=== PATIENT | female | born 1945 | race Caucasian/White ===

== ENCOUNTER 2016-04-22 03:29 | Observation (INO) | payer OTHER ==
[2016-04-22] VITALS (9 sets, daily range): BP systolic 130–168; BP diastolic 63–95; PULSE 90–114; RESP 16–18; TEMP 97.8–98.9; O2SAT 96–100
[~2016-04-22] VITALS: Ht 167.6 cm; Wt 90.0 kg
[~2016-04-22 03:29] MED LIST: ASPI325T PO; ERYT400T4 PO; PENI500T PO
[2016-04-22] MEDS ORDERED: METO50TA PO (03:41)
[2016-04-22] MEDS ORDERED: ANAS1TAB PO (03:41)
[2016-04-22] MEDS ORDERED: HYDR12.57 PO (03:41)
[2016-04-22] MEDS ORDERED: SIMV40TA PO (03:41)
[2016-04-22] MEDS ORDERED: LISI-519 PO (03:41)
[2016-04-22] MEDS ORDERED: VITA500030 PO (03:41)
[2016-04-22] MEDS ORDERED: ASPI-110 PO (03:41)
[2016-04-22] MEDS ORDERED: GLIP5TAB8 PO (03:41)
[2016-04-22] MEDS ORDERED: SODIUM CHLORIDE 0.9% FLUSH 5 ML FLUSH IVF PRN ×2 (04:00→06:00)
--- NOTE | 2016-04-22 04:35 | RADRPT ---
EXAM DATE/TIME: 04/22/2016 04:03 [facility] COMPARISON: No previous studies available for comparison. INDICATIONS : Weakness with difficulty speech. RADIATION DOSE: 56.37 CTDIvol (mGy) MEDICAL HISTORY : Diabetes mellitus type 2. SURGICAL HISTORY : None. ENCOUNTER: Initial ACUITY: 1 day PAIN SCALE: 0/10 LOCATION: cranial TECHNIQUE: Multiple contiguous axial images were obtained of the head. Using automated exposure control and adj ustment of the mA and/or kV according to patient size, radiation dose was kept as low as reasonably a chievable to obtain optimal diagnostic quality images. FINDINGS: CEREBRUM: The ventricles are normal for age. No evidence of midline shift, mass lesion, hemorrhage or acute in farction. No extra-axial fluid collections are seen. POSTERIOR FOSSA: The cerebellum and brainstem are intact. The 4th ventricle is midline. The cerebellopontine angle i s unremarkable. EXTRACRANIAL: The visualized portion of the orbits is intact. SKULL: The calvaria is intact. No evidence of skull fracture. CONCLUSION: Normal examination for a patient of this age. Georges Copeland MD on April 22, 2016 at 4:33 Board Certified Radiologist. This report was verified electronically.
--- NOTE | 2016-04-22 04:36 | RADRPT ---
EXAM DATE/TIME: 04/22/2016 04:09 [facility] COMPARISON: No previous studies available for comparison. INDICATIONS : Weakness. Congestion. MEDICAL HISTORY : None. SURGICAL HISTORY : None. ENCOUNTER: Initial ACUITY: 1 day PAIN SCORE: 7/10 LOCATION: Bilateral chest FINDINGS: A single view of the chest demonstrates the lungs to be symmetrically aerated without evidence of mas s, infiltrate or effusion. The cardiomediastinal contours are unremarkable. Osseous structures are intact. CONCLUSION: Normal examination for a patient of this age. Georges Copeland MD on April 22, 2016 at 4:34 Board Certified Radiologist. This report was verified electronically.
[2016-04-22 04:44] LABS: AUTOMATED NEUTROPHIL # 8.1 TH/MM3 (1.8-7.7); BASOPHIL % 0.4 % (0.0-2.0); EOSINOPHIL % 0.1 % (0.0-4.0); HEMATOCRIT 33.9 % (35.0-46.0); HEMO FLAGS DIFF FINAL; LYMPH % 7.1 % (9.0-44.0); LYMPHOCYTE # 0.6 TH/MM3 (1.0-4.8); MEAN CELL VOLUME 83.2 FL (80.0-100.0); MEAN CORPUSCULAR HEMOGLOBIN 28.8 PG (27.0-34.0); MEAN CORPUSCULAR HGB CONC 34.6 % (32.0-36.0); MONO % 3.6 % (0.0-8.0); NEUT % 88.8 % (16.0-70.0); PLATELET COUNT 243 TH/MM3 (150-450); RED BLOOD COUNT 4.08 MIL/MM3 (4.00-5.30); RED CELL DISTRIBUTION WIDTH 14.5 % (11.6-17.2); WHITE BLOOD COUNT 9.1 TH/MM3 (4.0-11.0)
[2016-04-22 04:54] LABS: APTT (PATIENT) 23.6 SEC (24.3-30.1); INTERNATIONAL NORMALIZED RATIO 0.9 RATIO
[2016-04-22 05:09] LABS: ANION GAP 11 MEQ/L (5-15); AST (GOT) 22 U/L (15-37); BICARBONATE 26.1 MEQ/L (21.0-32.0); BLOOD UREA NITROGEN 26 MG/DL (7-18); CHLORIDE 106 MEQ/L (98-107); GLOMERULAR FILTRATION RATE 37 ML/MIN (>89); POTASSIUM 4.8 MEQ/L (3.5-5.1); SODIUM (NA) 143 MEQ/L (136-145)
[2016-04-22 05:14] LABS: ALKALINE PHOSPHATASE 48 U/L (45-117); ALT (GPT) 20 U/L (10-53); CREATINE KINASE 190 U/L (26-192); TOTAL BILIRUBIN ADULT 0.2 MG/DL (0.2-1.0)
--- NOTE | 2016-04-22 05:53 | PD ---
HPI Chief Complaint: Diabetic Time Seen by Provider: 03:48 Travel History International Travel<30 days: No Contact w/Intl Traveler<30days: No Traveled to known affect area: No History of Present Illness HPI Patient is a 71-year-old female who comes in because she says she thinks she is having a stroke. She says around 6 PM last night she also and felt like she could not move. She also says she was unable to speak. She says this lasted until early this morning when she was finally able to move and get to her phone to call 911. She says she is feeling better, but says she still feels like she cannot walk. She also says she feels like she is having trouble finding words. When EMS arrived, they found her sugar to be 41, she was given glucose and her sugar came up. She says she started to feel better prior to receiving the glucose. She does take glipizide. PFSH Past Medical History Diabetes: Yes Patient Takes Glucophage: Yes Diminished Hearing: No Tetanus Vaccination: Unknown Influenza Vaccination: No Past Surgical History Cholecystectomy: Yes Other Surgery: Yes (RIGHT LUMPECTOMY) Social History Alcohol Use: No (QUIT 3 MONTHS AGO ON LARGE BOTTLE OF WINE DAILY) Tobacco Use: No Substance Use: No Allergies-Medications (Allergen,Severity, Reaction): Uncoded Allergies: NKA (Allergy, Unknown, 10/30/02) PCN - ITCHING (Allergy, Unknown, 10/30/02) Reported Meds & Prescriptions Reported Meds & Active Scripts Active Reported Aspirin 81 (Aspirin) 81 Mg Tabdr 81 Mg PO DAILY Vitamin D3 (Cholecalciferol) 5,000 Unit Chew 5,000 Units PO WEEKLY Anastrozole 1 Mg Tab 1 Mg PO DAILY Glipizide 5 Mg Tab 2.5 Mg PO BIDAC Take 30 minutes before a meal Simvastatin 40 Mg Tab 40 Mg PO HS Hydrochlorothiazide 12.5 Mg Cap 12.5 Mg PO HS Metoprolol Tartrate 50 Mg Tab 50 Mg PO BID Lisinopril 5 Mg Tab 5 Mg PO DAILY Review of Systems Except as stated in HPI: all other systems reviewed are Neg General / Constitutional: No: Fever, Chills Eyes: No: Blurred Vision HENT: No: Headaches Cardiovascular: No: Chest Pain or Discomfort Respiratory: No: Shortness of Breath Gastrointestinal: No: Nausea, Vomiting Musculoskeletal: No: Myalgias Skin: No Rash, No Change in Pigmentation Neurologic: Positive: Weakness, Coordination Problem Physical Exam Narrative GENERAL: Awake and alert, in no acute distress. SKIN: Warm and dry. HEAD: Atraumatic. Normocephalic. EYES: Pupils equal and round. No scleral icterus. ENT: Mucous membranes pink and moist. NECK: Trachea midline. No JVD. CARDIOVASCULAR: Regular rate and rhythm. No murmur appreciated. RESPIRATORY: No accessory muscle use. Clear to auscultation. Breath sounds equal bilaterally. GASTROINTESTINAL: Abdomen soft, non-tender, nondistended. MUSCULOSKELETAL: No obvious deformities. No clubbing. No cyanosis. No edema. NEUROLOGICAL: Awake and alert. No obvious cranial nerve deficits. Motor grossly within normal limits. Normal speech. PSYCHIATRIC: Appropriate mood and affect; insight and judgment normal. Data Data Last Documented VS Vital Signs Date Time Temp Pulse Resp B/P Pulse Ox O2 Delivery O2 Flow Rate FiO2 04/22/16 06:08 97 18 138/76 96 Room Air 04/22/16 03:37 98.0 Orders Electrocardiogram (04/22/16 03:49) Prothrombin Time / Inr (Pt) (04/22/16 03:49) Act Partial Throm Time (Ptt) (04/22/16 03:49) Complete Blood Count With Diff (04/22/16 03:49) Comprehensive Metabolic Panel (04/22/16 03:49) Creatine Kinase (Cpk) (04/22/16 03:49) Troponin I (04/22/16 03:49) Urinalysis - C+S If Indicated (04/22/16 03:49) Ua Includes Microscopic (04/22/16 03:49) Ct Brain W/O Iv Contrast(Rout) (04/22/16 03:49) Chest, Single Ap (04/22/16 03:49) Ecg Monitoring (04/22/16 03:49) Iv Access Insert/Monitor (04/22/16 03:49) Oximetry (04/22/16 03:49) Sodium Chloride 0.9% Flush (Ns Flush) (04/22/16 04:00) Place In Observation (04/22/16 ) Vital Signs (Adult) Q2HX12,Q4H (04/22/16 05:52) Nih Stroke Scale - Nihss .Daily (04/22/16 05:52) Neuro Checks Q2HX12,Q4H (04/22/16 05:52) ^ Notify Dr: Other (04/22/16 05:52) Ot Request For Service (04/22/16 05:52) Pt Request For Service (04/22/16 05:52) St Request For Service (04/22/16 05:52) Case Management Consult (04/22/16 ) Activity Oob Ad Aminah (04/22/16 05:52) Nursing Bedside Swallow Assess .ONCE (04/22/16 05:52) Scd Bilateral/Knee High MELISSA.QSHIFT (04/22/16 05:52) Diet Npo (04/22/16 Breakfast) Hemoglobin (Hgb) A1c (04/22/16 05:52) Lipid Profile (04/23/16 06:00) Remove Urinary Catheter .ONCE (04/22/16 05:52) Sodium Chloride 0.9% Flush (Ns Flush) (04/22/16 09:00) Sodium Chloride 0.9% Flush (Ns Flush) (04/22/16 06:00) Bedside Glucose MELISSA.AC&HS (04/22/16 05:52) ^ Discontinue Insulin Orders (04/22/16 05:52) Dextrose 50% In Alexis (Vial) Inj (D50w (Vi (04/22/16 06:00) Glucagon Inj (Glucagon Inj) (04/22/16 06:00) Layout Mechanic / Telemetry MELISSA.Q8H (04/22/16 05:52) Consult Lj Navigator (04/22/16 ) Admit Order (Ed Use Only) (04/22/16 ) Labs Laboratory Tests Test 04/22/16 03:40 White Blood Count 9.1 TH/MM3 Red Blood Count 4.08 MIL/MM3 Hemoglobin 11.8 GM/DL Hematocrit 33.9 % Mean Corpuscular Volume 83.2 FL Mean Corpuscular Hemoglobin 28.8 PG Mean Corpuscular Hemoglobin 34.6 % Concent Red Cell Distribution Width 14.5 % Platelet Count 243 TH/MM3 Mean Platelet Volume 8.2 FL Neutrophils (%) (Auto) 88.8 % Lymphocytes (%) (Auto) 7.1 % Monocytes (%) (Auto) 3.6 % Eosinophils (%) (Auto) 0.1 % Basophils (%) (Auto) 0.4 % Neutrophils # (Auto) 8.1 TH/MM3 Lymphocytes # (Auto) 0.6 TH/MM3 Monocytes # (Auto) 0.3 TH/MM3 Eosinophils # (Auto) 0.0 TH/MM3 Basophils # (Auto) 0.0 TH/MM3 CBC Comment DIFF FINAL Differential Comment Prothrombin Time 10.0 SEC Prothromb Time International 0.9 RATIO Ratio Activated Partial 23.6 SEC Thromboplast Time Sodium Level 143 MEQ/L Potassium Level 4.8 MEQ/L Chloride Level 106 MEQ/L Carbon Dioxide Level 26.1 MEQ/L Anion Gap 11 MEQ/L Blood Urea Nitrogen 26 MG/DL Creatinine 1.40 MG/DL Estimat Glomerular Filtration 37 ML/MIN Rate Random Glucose 240 MG/DL Calcium Level 8.9 MG/DL Total Bilirubin 0.2 MG/DL Aspartate Amino Transf 22 U/L (AST/SGOT) Alanine Aminotransferase 20 U/L (ALT/SGPT) Alkaline Phosphatase 48 U/L Total Creatine Kinase 190 U/L Troponin I LESS THAN 0.02 NG/ML Total Protein 7.4 GM/DL Albumin 3.5 GM/DL [facility] Medical Decision Making Medical Screen Exam Complete: Yes Emergency Medical Condition: Yes Medical Record Reviewed: Yes Interpretation(s) EKG shows sinus rhythm at 85, no ST elevation or depression Differential Diagnosis Stroke versus electrolyte abnormality versus ACS Narrative Course Patient is a 71-year-old female comes in because she says she thinks she is having a stroke. She says she was unable to move at 6 PM last night. Currently she has equal strength in all her extremities, no obvious neuro deficit. IV established, labs sent. Patient sent for CT of her head. Labs show a glucose of 204. CT of the head shows no acute abnormalities. I spoke with Dr. Terry of neurology who suggests that admission for stroke workup. Patient admitted for further management. Diagnosis Primary Impression: CVA (cerebral vascular accident) Qualified Code: I63.9 - Cerebrovascular accident (CVA), unspecified mechanism Admitting Information Admitting Physician Requests: it Kristen Man MD Apr 22, 2016 05:53
[2016-04-22] MEDS ORDERED: DEXTROSE 50% IN WATER 50 ML VIAL(D50) IV PUSH PRN ×2 (06:00→08:15)
[2016-04-22] MEDS ORDERED: GLUCAGON 1 MG/ML VIAL OTHER PRN ×2 (06:00→08:15)
--- NOTE | 2016-04-22 08:07 | HHI.HP ---
[facility] Kay Trujillo Admission Diagnosis CVA Diagnoses: (1) TIA (transient ischemic attack) Diagnosis: Principal (2) Diabetes mellitus (3) Hyperlipidemia (4) Weakness (5) Hypertension Chief Complaint: weakness, possible stroke Travel History International Travel<30 Days: No Contact w/Intl Traveler <30 Da: No Traveled to Known Affected Are: No History of Present Illness The patient is a 71-year-old female who presented to the emergency department with complaint of possible stroke. She states that yesterday evening at about 6 PM she awakened from sleep and had difficulty with vision as well as being unable to move. She states that she was able to move her arms and legs, but not enough to move her entire body. She reports chronic left-sided weakness, but feels that it worsened yesterday. She had difficulty with speech as well. She was finally able to move enough to get to the phone and called 911. Her symptoms have improved significantly, but she states that she is still having numbness and tingling on the left side. She also continues to report worsened weakness of the left upper and lower extremity as well. Denies chest pain or dyspnea. Does have right-sided headache this morning, but no headache yesterday when the other symptoms began. Review of Systems Constitutional: DENIES: Fever, Chills, Night Sweats Eyes: DENIES: Blurred vision, Vision loss Ears, nose, mouth, throat: DENIES: Hearing loss Respiratory: DENIES: Cough, Wheezing, Sputum production, Shortness of breath Cardiovascular: DENIES: Chest pain, Palpitations, Dyspnea on Exertion, Lower Extremity Edema Gastrointestinal: DENIES: Abdominal pain, Constipation, Diarrhea, Nausea, Vomiting Genitourinary: DENIES: Urinary frequency, Urinary incontinence, Urgency, Hematuria, Dysuria, Nocturia Musculoskeletal: DENIES: Joint pain, Muscle aches Integumentary: DENIES: Pruritus, Rash Hematologic/lymphatic: DENIES: Bruising Neurologic: COMPLAINS OF: Headache, Localized weakness, Paresthesias, Speech Problems Past Family Social History Past Medical History Diabetes mellitus Hypertension Hyperlipidemia History of breast cancer, in remission Past Surgical History Left breast lumpectomy Cholecystectomy Reported Medications Aspirin 81 (Aspirin) 81 Mg Tabdr 81 Mg PO DAILY Vitamin D3 (Cholecalciferol) 5,000 Unit Chew 5,000 Units PO WEEKLY Anastrozole 1 Mg Tab 1 Mg PO DAILY Glipizide 5 Mg Tab 2.5 Mg PO BIDAC Take 30 minutes before a meal Simvastatin 40 Mg Tab 40 Mg PO HS Hydrochlorothiazide 12.5 Mg Cap 12.5 Mg PO HS Metoprolol Tartrate 50 Mg Tab 50 Mg PO BID Lisinopril 5 Mg Tab 5 Mg PO DAILY Allergies: Uncoded Allergies: NKA (Allergy, Unknown, 10/30/02) PCN - ITCHING (Allergy, Unknown, 10/30/02) Family History Denies Social History Denies tobacco or illicit drug use. Drinks red wine, "1-2 large glasses"about once a week to help with sleep. Physical Exam Vital Signs Vital Signs Date Time Temp Pulse Resp B/P Pulse Ox O2 Delivery O2 Flow Rate FiO2 04/22/16 06:08 97 18 138/76 96 Room Air 04/22/16 04:21 100 Room Air 04/22/16 03:37 98.0 98 16 130/95 97 Room Air 04/22/16 03:35 16 97 Room Air Physical Exam GENERAL: Well-nourished, well-developed female in no acute distress. HEENT: Normocephalic, atraumatic. Pupils equal, round and reactive. Extraocular movements intact. No scleral icterus. No injection or drainage. Oropharynx is clear. Mucous membranes are moist. CARDIOVASCULAR: Tachycardic. RESPIRATORY: Clear to auscultation. No wheezes, rales, or rhonchi. Breathing is non-labored. GASTROINTESTINAL: Abdomen soft, non-tender, nondistended. EXTREMITIES: No lower extremity edema. No calf tenderness. PSYCH: Alert and oriented x 3. NEURO: Cranial nerves II through XII are grossly intact. Mild weakness on the left upper and left lower extremities compared to the right. Laboratory Laboratory Tests Test 04/22/16 03:40 White Blood Count 9.1 Red Blood Count 4.08 Hemoglobin 11.8 Hematocrit 33.9 Mean Corpuscular Volume 83.2 Mean Corpuscular Hemoglobin 28.8 Mean Corpuscular Hemoglobin 34.6 Concent Red Cell Distribution Width 14.5 Platelet Count 243 Mean Platelet Volume 8.2 Neutrophils (%) (Auto) 88.8 Lymphocytes (%) (Auto) 7.1 Monocytes (%) (Auto) 3.6 Eosinophils (%) (Auto) 0.1 Basophils (%) (Auto) 0.4 Neutrophils # (Auto) 8.1 Lymphocytes # (Auto) 0.6 Monocytes # (Auto) 0.3 Eosinophils # (Auto) 0.0 Basophils # (Auto) 0.0 CBC Comment DIFF FINAL Differential Comment Prothrombin Time 10.0 Prothromb Time International 0.9 Ratio Activated Partial 23.6 Thromboplast Time Sodium Level 143 Potassium Level 4.8 Chloride Level 106 Carbon Dioxide Level 26.1 Anion Gap 11 Blood Urea Nitrogen 26 Creatinine 1.40 Estimat Glomerular Filtration 37 Rate Random Glucose 240 Calcium Level 8.9 Total Bilirubin 0.2 Aspartate Amino Transf 22 (AST/SGOT) Alanine Aminotransferase 20 (ALT/SGPT) Alkaline Phosphatase 48 Total Creatine Kinase 190 Troponin I LESS THAN 0.02 Total Protein 7.4 Albumin 3.5 Result Diagram: 04/22/1633904/22/16339 Imaging Last Impressions Head CT 04/22/16348 Signed Impressions: Service Date/Time: April 04:03 - CONCLUSION: Normal examination for a patient of this age. Georges Copeland MD Chest X-Ray 04/22/16348 Signed Impressions: Service Date/Time: April 04:09 - CONCLUSION: Normal examination for a patient of this age. Georges Copeland MD Assessment and Plan Assessment and Plan 1. TIA versus CVA: Symptoms have improved, but patient is still having some left -sided weakness. She states that this weakness is worse than her residual weakness that she has had for the last few years. CT of the head is negative. Continue TIA/stroke workup. Consult neurology. 2. Diabetes mellitus: Monitor Accu-Cheks and cover with sliding scale insulin. 3. Hypertension: We'll allow permissive hypertension. 4. Hyperlipidemia: Continue statin. 5. DVT prophylaxis: SCDs, JASSI hose. Problem Qualifiers (1) Diabetes mellitus: Bam Figueroa MD Apr 22, 2016 08:06
[2016-04-22 08:32] LABS: BLOOD, URINE MOD (NEG); COMMENT (UR) CATH-CULT NOT IND; CULTURE IF INDICATED CATH CULTURE NOT IND; GLUCOSE,URINE 70 mg/dL (NEG); KETONE, URINE NEG (NEG); MUCUS URINE FEW /lpf (OCC); NITRITE,URINE NEG (NEG); SQUAMOUS EPITHELIAL CELL URINE <1 /hpf (0-5); URINE COLOR LIGHT-YELLOW (YELLW/STRAW)
[2016-04-22] MEDS: ANASTROZOLE 1 MG TAB PO SCH (09:00)
[2016-04-22 10:36] LABS: HEMOGLOBIN Ao 84.1 %; HEMOGLOBIN F 1.3 %; HEMOGLOBIN LA1C 2.5 %; HEMOGLOBIN P3 5.2 %
[2016-04-22] MEDS: SODIUM CHLORIDE 0.9% FLUSH 5 ML FLUSH IVF SCH ×2 (10:49→20:25)
[2016-04-22] MEDS: ASPIRIN EC 81 MG TABEC PO SCH (10:50)
[2016-04-22] MEDS: SODIUM CHLOR 0.9% 1000 ML INJ 1,000 ML IV SCH ×2 (10:50→22:29)
[2016-04-22] MEDS: CLOPIDOGREL 75 MG TAB PO SCH (10:51)
[2016-04-22] MEDS: INSULIN ASPART SUPPLEMENTAL SCALE SQ SCH ×3 (10:54→20:26)
--- NOTE | 2016-04-22 12:52 | RADRPT ---
EXAM DATE/TIME: 04/22/2016 11:42 [facility] COMPARISON: MRI BRAIN W & W/O CONTRAST, April 22, 2016, 11:42. INDICATIONS : CVA. Aphasia. MEDICAL HISTORY : Hypertension. Carcinoma, breast. Diabetes. Kidney disease. SURGICAL HISTORY : Cholecystectomy. Bi-lateral lumpectomy. Cataracts. ENCOUNTER: Subsequent ACUITY: 1 day PAIN SCORE: 0/10 LOCATION: cranial Please note a normal MRA of the brain does not entirely exclude the possibility of a small aneurysm, nor the possibility of distal intracranial vessel disease. TECHNIQUE: 3D time of flight MRA was performed. Source images, multiplanar STS MIP, and 3D volume MIP reconstru ctions were reviewed. FINDINGS: There is excellent visualization of the major intracranial arteries out to the second-order branch ve ssels. There is no evidence for aneurysm, vessel truncation or stenosis, and no evidence for vascula r malformation. CONCLUSION: 1. Negative examination. Mk Astorga MD on April 22, 2016 at 12:48 Board Certified Radiologist. This report was verified electronically.
[2016-04-22] MEDS ORDERED: GADOBENATE DIM PF 529 MG/ML 20ML VIAL (for RAD MRI) IV ONE (13:07)
--- NOTE | 2016-04-22 14:03 | RADRPT ---
EXAM DATE/TIME: 04/22/2016 11:42 [facility] COMPARISON: No previous studies available for comparison. INDICATIONS : CVA. Aphasia. Left side weakness. CONTRAST: 20 cc Multihance (gadobenate) IV MEDICAL HISTORY : Hypertension. Carcinoma, breast. Diabetes. Kidney disease. SURGICAL HISTORY : Cholecystectomy. Bi-lateral lumpectomy. Cataracts. ENCOUNTER: Subsequent ACUITY: 1 day PAIN SCORE: 0/10 LOCATION: cranial TECHNIQUE: Multiplanar, multisequence MRI of the brain was performed both prior to and following the administrat ion of paramagnetic contrast. FINDINGS: CEREBRUM: The ventricles are normal for age. No evidence of midline shift, mass lesion, hemorrhage or acute in farction. No extraaxial fluid collections are seen. The pituitary gland and suprasellar cistern are normal in configuration. WHITE MATTER: No significant signal abnormalities are seen in the white matter. POSTERIOR FOSSA: The cerebellum and brainstem are intact. The 4th ventricle is midline. The cerebellopontine angle is unremarkable. The cerebellar tonsils are normal in position. DIFFUSION IMAGING: No focal areas of restricted diffusion are seen. No evidence of acute infarction. EXTRACRANIAL: The visualized portions of the orbits and paranasal sinuses are unremarkable. POST-CONTRAST: No abnormal areas of parenchymal or dural enhancement. No evidence of blood-brain barrier breakdown. CONCLUSION: 1. Negative examination. Mk Astorga MD on April 22, 2016 at 13:34 Board Certified Radiologist. This report was verified electronically.
--- NOTE | 2016-04-22 14:16 | RADRPT ---
EXAM DATE/TIME: 04/22/2016 11:42 [facility] COMPARISON: No previous studies available for comparison. INDICATIONS : Left sided weakness. Aphasia. CONTRAST: 20 cc Multihance (gadobenate) IV MEDICAL HISTORY : Hypertension. Carcinoma, breast. Diabetes. Renal disease. SURGICAL HISTORY : Cholecystectomy. Bi-lateral lumpectomy. Cataract removal. ENCOUNTER: Subsequent ACUITY: 1 day PAIN SCORE: 0/10 LOCATION: neck Percent stenosis is calculated using the diameter of the stenotic region over the diameter of the nor mal distal internal carotid artery. TECHNIQUE: Bolus infused MRA of the extracranial circulation was performed using a neurovascular coil. Post pro cessing was performed including rotating subvolume maximum intensity projections of each carotid meeta ry, rotating full volume maximum intensity projections of both carotid arteries, sagittal and coronal sliding thin slab reformations of each carotid artery, and left oblique sliding thin slab reformatio n through the aortic arch to include the origin of the arch branch vessels. FINDINGS: AORTIC ARCH: There is a three vessel origin of the great vessels from the aorta. No evidence of ostial narrowing. RIGHT CAROTID: The common carotid artery is intact. The carotid bulb has a normal configuration without ulceration or narrowing. The internal carotid artery lumen is smooth without stenosis. The external carotid ar vish is intact. LEFT CAROTID: The common carotid artery is intact. The carotid bulb has a normal configuration without ulceration or narrowing. The internal carotid artery lumen is smooth without stenosis. The external carotid ar vish is intact. VERTEBRALS: The vertebral arteries have a symmetric diameter. No stenotic lesions are seen. CONCLUSION: 1. The examination is within normal limits. Mk Astorga MD on April 22, 2016 at 14:02 Board Certified Radiologist. This report was verified electronically.
[2016-04-22] MEDS ORDERED: glipiZIDE 5 MG TAB PO SCH (16:00)
[2016-04-22 17:17] LABS: FREE T4 1.07 NG/DL (0.76-1.46)
[2016-04-22 17:38] LABS: CKMB 14.2 NG/ML (0.5-3.6)
--- NOTE | 2016-04-22 19:04 | EC ---
Study Study Date:04/22/2016 STUDY CONCLUSIONS SUMMARY LEFT VENTRICLE: The cavity size was normal. Wall thickness was normal. Systolic function was normal. The estimated ejection fraction was in the range of 55% to 60%. Wall motion was normal; there were no regional wall motion abnormalities. If LV function is below 40, please consider prescribing an ACEI or ARB or document rationale for non-use. PROCEDURE DATA STUDY STATUS: Elective. Procedure: Transthoracic echocardiography. Image quality was poor. Scanning was performed from the parasternal, apical, and subcostal acoustic windows. Study completion: The patient tolerated the procedure well. Transthoracic echocardiography. M-mode, complete 2D, complete spectral Doppler, and color Doppler. Patient status: Inpatient. CARDIAC ANATOMY LEFT VENTRICLE: The cavity size was normal. Wall thickness was normal. Systolic function was normal. The estimated ejection fraction was in the range of 55% to 60%. Wall motion was normal; there were no regional wall motion abnormalities. AORTIC VALVE: Trileaflet; normal thickness leaflets. Doppler: Transvalvular velocity was within the normal range. There was no stenosis. No regurgitation. Peak gradient: 13mm Hg (S). AORTA: Aortic root: The aortic root was normal in size. MITRAL VALVE: Structurally normal valve. Doppler: Transvalvular velocity was within the normal range. There was no evidence for stenosis. No regurgitation. Peak gradient: 3mm Hg (D). LEFT ATRIUM: The atrium was normal in size. RIGHT VENTRICLE: The cavity size was normal. Wall thickness was normal. PULMONIC VALVE: Doppler: Transvalvular velocity was within the normal range. There was no evidence for stenosis. No regurgitation. TRICUSPID VALVE: Structurally normal valve. Doppler: Transvalvular velocity was within the normal range. No regurgitation. PULMONARY ARTERY: The main pulmonary artery was normal-sized. Systolic pressure was within the normal range. RIGHT ATRIUM: The atrium was normal in size. PERICARDIUM: There was no pericardial effusion. SYSTEMIC VEINS: Inferior vena cava: The vessel was normal in size. BASIC MEASUREMENTS ADULT NORMAL Left ventricle LV internal dimension, ED, chordal level, 51.5 mm 43-52 PLAX LV internal dimension, ES, chordal level, *40 mm 23-38 PLAX Fractional shortening, chordal level, PLAX *22 % >29 LV posterior wall thickness, ED 8.74 mm IVS/LVPW ratio, ED 1.28 <1.3 Ventricular septum Septal thickness, ED 11.2 mm Left atrium Anterior-posterior dimension 36 mm Right ventricle RV internal dimension, ED, PLAX 23.5 mm 19-38 DOPPLER MEASUREMENTS ADULT NORMAL Aortic valve Peak velocity, S 179 cm/s Peak gradient, S 13 mm Hg Mitral valve Peak E-wave velocity 85.5 cm/s Peak A-wave velocity 97.1 cm/s Peak gradient, D 3 mm Hg Peak E/A ratio 0.9 Tricuspid valve Regurgitant peak velocity 176 cm/s Peak RV-RA gradient, S 12 mm Hg Maximal regurgitant velocity 176 cm/s LEGEND: Mean values are shown as u=mean value. Asterisk (*) mahoney values outside specified normal range. Prepared and signed by Francisco Javier Yeboah [id number]
[2016-04-22] MEDS: PRAVASTATIN SOD 80 MG TAB PO SCH (20:26)
[2016-04-22] MEDS: CYANOCOBALAMIN 1000 MCG/ML VIAL SQ SCH (20:28)
--- NOTE | 2016-04-22 23:42 | EKG ---
Date Performed: 04/22/2016 Time Performed: 04:31:41 PTAGE: 71 years EKG: Sinus rhythm WITH FIRST DEGREE AV BLOCK LOW QRS VOLTAGE IN PRECORDIAL LEADS MINIMAL VOLTAGE CRITERIA FOR LVH, CON HAND HIDE STRETCHER NORMAL VARIANT INFERIOR MYOCARDIAL INFARCTION ABNORMAL ECG PREVIOUS TRACING : 07/31/2009 13.45 Compared to prior tracing no significant change DOCTOR: Frederic Gilliam Interpretating Date/Time 04/22/2016 23:41:14
[2016-04-23 03:40] VITALS: BP 137/82; PULSE 90; RESP 18; O2SAT 96
--- NOTE | 2016-04-23 05:20 | MB ---
cc: OVIDIO MAYORGA M.D. DATE OF CONSULTATION 04/22/2016 HISTORY A 71-year-old right-handed woman with hypertension, non-insulin dependent diabetes mellitus, hypercholesterolemia, chronic renal insufficiency, 3 years ago breast cancer status post chemo on the left side, had possibly a TIA at that time where she had trouble getting her words out for 2 hours, had a workup outpatient at [place]. Was told to take an aspirin a day; she has not been taking aspirin regularly. She had about 2-1/2 glasses of wine last night, about 07:00 p.m. went to bed, woke up about 02:00 a.m. and felt like her speech was slurred, she had difficulty moving, she felt weak all over and came into the hospital. MRI of the brain is negative for any infarct, old or new. MRA neck and sycuan of Mac[place] were normal. I have reviewed all those films. REVIEW OF SYSTEMS She denied any [place], CABG, stent, angioplasty, A-fib, Coumadin, hepatic, pulmonary disease, thyroid disease, lupus, ulcer, seizure. SOCIAL HISTORY Nonsmoker, occasionally has a drink about once a week about two glasses of wine. Lives by herself. FAMILY HISTORY Positive cancer in both of her parents. [id number] for seizure. Positive for TIA in her mother. MEDICATION ALLERGIES No known drug allergies except for PENICILLIN - some itching. MEDICATIONS 1. We put her on 81 of aspirin but she was not taking that regularly. 2. Anastrozole. 3. Glipizide. 4. Simvastatin. 5. Hydrochlorothiazide. 6. Metoprolol. 7. Lisinopril. HISTORY OF PRESENT ILLNESS This far as the aspirin goes, for the last 2 weeks, she tells me she was taking it every day. PHYSICAL EXAMINATION VITAL SIGNS: She has been in sinus rhythm here. Blood pressure 160/71, afebrile, 97 and 16. NECK: There were no carotid bruits. HEART: Regular rhythm. I do not detect a murmur. Abdomen She is minimally obese. NEUROLOGIC: Pupils are equal. Visual hicks are full. Extraocular movements intact, without nystagmus. Face symmetric. Normal sensation. Tongue was midline. No drift. Normal strength in upper and lower extremities bilaterally. DTRs trace throughout. Toes downgoing bilaterally. Pinprick is intact throughout. She is not ataxic on [id number]. Speech is fluent, not aphasic. No apparent distress. LABORATORY DATA Sed rate is 34. CBC is normal. Basic metabolic profile - creatinine 1.4, otherwise normal. Glucose was 240. Hemoglobin A1c was normal. LFTs are normal. CPK and troponin are negative. Total protein normal. Albumin normal. B12 low normal at 245. Thyroid generally normal. UA - 3 white cells, moderate leukocyte esterase. Coags normal. CHEST X-RAY Normal. IMPRESSION Possible a TIA, I think unlikely. RECOMMENDATIONS 1. We did switch her to Plavix. However, will check an echo and a Holter. 2. If you think she needs treatment for possible UTI, defer to the med team. 3. Give her a B12 shot. 4. She could be discharged on Plavix and stop her aspirin in 3 days if her echo is negative and a Holter is performed and done. MD JANI Monson/MAYURI /7:18 PM /5:03 AM
[2016-04-23] MEDS: INSULIN ASPART SUPPLEMENTAL SCALE SQ SCH ×3 (05:23→20:27)
[2016-04-23 07:38] VITALS: BP 142/60; PULSE 86; RESP 18; TEMP 97.8; O2SAT 95
[2016-04-23 08:00] VITALS: PULSE 80
[2016-04-23 08:03] LABS: HDL CHOLESTEROL 63.6 MG/DL (40.0-60.0)
[2016-04-23] MEDS: ANASTROZOLE 1 MG TAB PO SCH (09:12)
[2016-04-23] MEDS: CYANOCOBALAMIN 1000 MCG/ML VIAL SQ SCH (09:12)
[2016-04-23] MEDS: SODIUM CHLORIDE 0.9% FLUSH 5 ML FLUSH IVF SCH ×2 (09:12→20:26)
[2016-04-23] MEDS: CLOPIDOGREL 75 MG TAB PO SCH (09:13)
[2016-04-23] MEDS: ASPIRIN EC 81 MG TABEC PO SCH (09:13)
--- NOTE | 2016-04-23 09:35 | HHI.FF ---
Face to Face Verification Diagnosis: (1) TIA (transient ischemic attack) (2) Diabetes mellitus (3) Hyperlipidemia (4) Weakness (5) Hypertension Physical Therapy Order: Evaluate and Treat Home Health Nursing Order: Nursing assessment with vital signs I have seen patient Oscar Wade on 04/23/16. My clinical findings support the need for the requested home health care services because: High risk of falls I certify that my clinical findings support that this patient is homebound because: Unsteady gait/balance Bam Figueroa MD Apr 23, 2016 09:35
--- NOTE | 2016-04-23 09:35 | HHI.DCPOC ---
Discharge Care Plan Diagnosis: (1) TIA (transient ischemic attack) (2) Diabetes mellitus (3) Hyperlipidemia (4) Weakness (5) Hypertension Goals to Promote Your Health * To prevent worsening of your condition and complications * To maintain your health at the optimal level Directions to Meet Your Goals Take your medications as prescribed Follow your dietary instruction Follow activity as directed Keep your appointments as scheduled Take your immunizations and boosters as scheduled If your symptoms worsen call your PCP, if no PCP go to Urgent Care Center or Emergency Room Smoking is Dangerous to Your Health. Avoid second hand smoke Call the 24-hour hour crisis hotline for domestic abuse at Bam Figueroa MD Apr 23, 2016 09:35
--- NOTE | 2016-04-23 09:36 | HHI.PR ---
Subjective Remarks Follow-up TIA. The patient states that she feels much better today. Ready to go home. Left sided weakness continues to improve. Denies chest pain, dyspnea. Objective Vitals Vital Signs Date Time Temp Pulse Resp B/P Pulse Ox O2 Delivery O2 Flow Rate FiO2 04/23/16 07:38 97.8 86 18 142/60 95 04/23/16 03:40 90 18 137/82 96 04/22/16 19:55 97.8 104 18 161/84 100 04/22/16 17:53 90 04/22/16 16:10 114 18 150/63 96 04/22/16 14:08 112 04/22/16 12:30 98.9 97 16 152/73 99 04/22/16 10:30 105 16 168/71 99 Room Air Result Diagram: 04/22/1633904/22/16339 Imaging Last Impressions Neck Magnetic Resonance Angiography 04/22/16908 Signed Impressions: Service Date/Time: April 11:42 - CONCLUSION: 1. The examination is within normal limits. Mk Astorga MD Head Magnetic Resonance Angiography 04/22/16908 Signed Impressions: Service Date/Time: April 11:42 - CONCLUSION: 1. Negative examination. Mk Astorga MD Brain MRI 04/22/16908 Signed Impressions: Service Date/Time: April 11:42 - CONCLUSION: 1. Negative examination. Mk Astorga MD Head CT 04/22/16348 Signed Impressions: Service Date/Time: April 04:03 - CONCLUSION: Normal examination for a patient of this age. Georges Copeland MD Chest X-Ray 04/22/16348 Signed Impressions: Service Date/Time: April 04:09 - CONCLUSION: Normal examination for a patient of this age. Georges Copeland MD Objective Remarks General: No acute distress. Heart: Regular rate and rhythm. No murmur. Lungs: Clear to auscultation bilaterally. No wheezes, rales, or rhonchi. Breathing is nonlabored. Abdomen: Soft, nontender, nondistended. Extremities: No lower extremity edema. Psych: Alert and oriented. Neuro: Mild left upper and lower extremity weakness. Procedures None Urinary Catheter: No Vascular Central Line Catheter: No A/P Problem List: (1) TIA (transient ischemic attack) ICD Code: G45.9 Status: Acute (2) Diabetes mellitus ICD Code: E11.9 Status: Acute (3) Hyperlipidemia ICD Code: E78.5 Status: Acute (4) Weakness ICD Code: R53.1 Status: Acute (5) Hypertension ICD Code: I10 Status: Acute Assessment and Plan 1. TIA: Appreciate neurology recommendations. MRI/MRA negative. Echocardiogram unremarkable with EF 55-60%. Continue Plavix. 2. Diabetes mellitus: Monitor Accu-Cheks and cover with sliding scale insulin. Restart Glipizide. 3. Hypertension: Restart lisinopril, metoprolol, HCTZ. 4. Hyperlipidemia: Continue statin. 5. DVT prophylaxis: Jeff, JASSI marques. Discharge Planning Plan for discharge home today after Holter monitor is completed. Will discharge home in stable condition. Heart healthy, diabetic diet. Activity as tolerated. Follow up with PCP, neurology. Problem Qualifiers (1) Diabetes mellitus: Bam Figueroa MD Apr 23, 2016 09:36
[2016-04-23] MEDS ORDERED: LISINOPRIL 5 MG TAB PO SCH (09:45)
[2016-04-23] MEDS ORDERED: METOPROLOL TARTRATE 50 MG TAB PO SCH (09:45)
[2016-04-23] MEDS ORDERED: PLAV75TA29 PO (09:50)
[2016-04-23] MEDS ORDERED: PILL SPLITTER OTHER PRN (10:15)
[2016-04-23] MEDS: SODIUM CHLOR 0.9% 1000 ML INJ 1,000 ML IV SCH (11:49)
[2016-04-23 12:22] VITALS: BP 163/71; PULSE 90; RESP 17; TEMP 98.2; O2SAT 95
[2016-04-23] MEDS ORDERED: glipiZIDE 5 MG TAB PO SCH (17:00)
--- NOTE | 2016-04-23 17:18 | HHI.PR ---
Subjective Remarks sb to 38 Objective Vital Signs Date Time Temp Pulse Resp B/P Pulse Ox O2 Delivery O2 Flow Rate FiO2 04/23/16 12:22 98.2 90 17 163/71 95 04/23/16 07:38 97.8 86 18 142/60 95 04/23/16 03:40 90 18 137/82 96 04/22/16 19:55 97.8 104 18 161/84 100 04/22/16 17:53 90 Result Diagram: 04/22/16 0340 04/22/16 0340 Other Results echo and labs ok Objective Remarks nl exam now Assessment and Plan Assessment and Plan in no new spell ok by me to dc neurowise med team to address low hr Abisai Peralta MD Apr 23, 2016 17:17
[2016-04-23 19:03] VITALS: BP 140/75; PULSE 83; RESP 20; TEMP 97.4; O2SAT 95
[2016-04-23] MEDS: glipiZIDE 5 MG TAB PO SCH (19:26)
[2016-04-23] MEDS: HYDROCHLOROTHIAZIDE 12.5 MG CAP PO SCH (20:26)
[2016-04-23] MEDS: PRAVASTATIN SOD 80 MG TAB PO SCH (20:26)
[2016-04-23 21:14] VITALS: PULSE 80
[2016-04-24] VITALS (8 sets, daily range): BP systolic 133–188; BP diastolic 64–86; PULSE 73–85; RESP 18–22; TEMP 96.8–98; O2SAT 95–100
[2016-04-24] MEDS: SODIUM CHLOR 0.9% 1000 ML INJ 1,000 ML IV SCH ×2 (01:09→14:29)
[2016-04-24] MEDS: INSULIN ASPART SUPPLEMENTAL SCALE SQ SCH ×4 (05:58→21:00)
--- NOTE | 2016-04-24 08:24 | HHI.PR ---
Subjective Remarks Follow-up TIA, bradycardia. Patient states that she was asymptomatic during episodes of bradycardia yesterday evening. She states that for the last few hours she has had "tightness" in her chest. She describes the sensation of discomfort in her back. She believes that this is related to indigestion. Belching does help. Objective Vitals Vital Signs Date Time Temp Pulse Resp B/P Pulse Ox O2 Delivery O2 Flow Rate FiO2 04/24/16 07:06 97.7 74 18 179/79 97 04/24/16 04:14 98.0 78 20 145/69 95 04/24/16 00:03 97.4 79 20 133/64 97 04/23/16 21:14 80 04/23/16 19:03 97.4 83 20 140/75 95 04/23/16 12:22 98.2 90 17 163/71 95 Result Diagram: 04/22/1633904/22/16339 Imaging Last Impressions Neck Magnetic Resonance Angiography 04/22/16908 Signed Impressions: Service Date/Time: April 11:42 - CONCLUSION: 1. The examination is within normal limits. Mk Astorga MD Head Magnetic Resonance Angiography 04/22/16908 Signed Impressions: Service Date/Time: April 11:42 - CONCLUSION: 1. Negative examination. Mk Astorga MD Brain MRI 04/22/16908 Signed Impressions: Service Date/Time: April 11:42 - CONCLUSION: 1. Negative examination. Mk Astorga MD Head CT 04/22/16348 Signed Impressions: Service Date/Time: April 04:03 - CONCLUSION: Normal examination for a patient of this age. Georges Copeland MD Chest X-Ray 04/22/16348 Signed Impressions: Service Date/Time: April 04:09 - CONCLUSION: Normal examination for a patient of this age. Georges Copeland MD Objective Remarks General: No acute distress. Heart: Regular rate and rhythm. No murmur. Lungs: Clear to auscultation bilaterally. No wheezes, rales, or rhonchi. Breathing is nonlabored. Abdomen: Soft, nontender, nondistended. Extremities: No lower extremity edema. Psych: Alert and oriented. Procedures None Urinary Catheter: No Vascular Central Line Catheter: No A/P Problem List: (1) TIA (transient ischemic attack) ICD Code: G45.9 Status: Acute (2) Diabetes mellitus ICD Code: E11.9 Status: Acute (3) Hyperlipidemia ICD Code: E78.5 Status: Acute (4) Weakness ICD Code: R53.1 Status: Acute (5) Hypertension ICD Code: I10 Status: Acute Assessment and Plan 1. TIA: Appreciate neurology recommendations. MRI/MRA negative. Echocardiogram unremarkable with EF 55-60%. Continue Plavix. 2. Diabetes mellitus: Monitor Accu-Cheks and cover with sliding scale insulin. Continue Glipizide. 3. Hypertension: Continue HCTZ. Hold metoprolol secondary to bradycardia. Increase lisinopril. 4. Hyperlipidemia: Continue statin. 5. DVT prophylaxis: JASSI Aguilar. 6. Bradycardia: Continue telemetry monitoring. Consult cardiology. Hold beta javier. 7. Chest tightness: Check stat cardiac enzymes, EKG. Consult cardiology. 8. GI prophylaxis: Protonix. Tums as needed for indigestion. Discharge Planning Patient has been cleared for discharge by neurology. Plan for discharge home when cleared by cardiology. Problem Qualifiers (1) Diabetes mellitus: Bam Figueroa MD Apr 24, 2016 08:24
[2016-04-24] MEDS ORDERED: CALCIUM CARBONATE 500 MG CHEWABLE TAB CHEW PRN (08:30)
[2016-04-24] MEDS: CYANOCOBALAMIN 1000 MCG/ML VIAL SQ SCH (08:49)
[2016-04-24] MEDS: LISINOPRIL 10 MG TAB PO SCH (08:50)
[2016-04-24] MEDS: SODIUM CHLORIDE 0.9% FLUSH 5 ML FLUSH IVF SCH ×2 (08:50→21:21)
[2016-04-24] MEDS: ANASTROZOLE 1 MG TAB PO SCH (08:50)
[2016-04-24] MEDS: CLOPIDOGREL 75 MG TAB PO SCH (08:50)
[2016-04-24] MEDS: ASPIRIN EC 81 MG TABEC PO SCH (08:50)
[2016-04-24] MEDS: PANTOPRAZOLE SOD 40 MG DELAYED RELEASE TAB PO SCH (08:50)
[2016-04-24] MEDS: glipiZIDE 5 MG TAB PO SCH ×2 (08:50→19:22)
[2016-04-24 09:45] LABS: CREATINE KINASE 114 U/L (26-192)
[2016-04-24 09:57] LABS: CKMB 1.1 NG/ML (0.5-3.6)
--- NOTE | 2016-04-24 11:44 | MB ---
cc: TERESA JARRETT MD DATE OF CONSULTATION: 04/24/2016 REASON FOR CONSULTATION Chest pain and bradycardia. HISTORY OF PRESENT ILLNESS Ms. Wade is a 71-year-old female who does have a history of hypertension, hyperlipidemia and diabetes. She presented initially on the with possible CVA noting that she was unable to move her arms and legs and had some visual changes and difficulty with her speech. This morning the patient reports that she had an episode of chest pain that lasted approximately 20 minutes. She reports that she thought it was indigestion. She notes that she is typically quite sedentary. PAST MEDICAL HISTORY As per the HPI. MEDICATIONS Current medications include - 1. Lisinopril. 2. Protonix. 3. Hydrochlorothiazide. 4. Glipizide. 5. Pravastatin. 6. Vitamin B12. 7. Aspirin. ALLERGIES NO KNOWN DRUG ALLERGIES. REVIEW OF SYSTEMS Except what is mentioned in the HPI, all 12 systems are negative. LABORATORY VALUES Significant for a TSH of 0.24, serial troponins of less than 0.02/0.03/less than 0.02. Her CPK is 489 with an MB percent of 249. Her creatinine is 1.4. EKG shows normal sinus rhythm with nonspecific ST-T wave changes. Telemetry shows normal sinus rhythm, sinus tachycardia and atrial bigeminy. There are no pauses. Some of the tracings labeled as sinus anita at 38 are actually normal sinus rhythm at 75 beats a minute. IMPRESSIONS Atypical chest pain - The patient certainly has several CV risk factors. Her ECG and enzymes are negative for any acute event. She will need further CV risk stratification with a nuclear stress test. Unfortunately, she has had breakfast with a cup of coffee this morning thus we will have to get the stress portion of her study tomorrow. If the study is not ischemic, it is reasonable for her to be discharged. Bradycardia - This is actually an incorrect interpretation by the computer as her leads are somewhat low voltage in appearance on the monitor. In any case, the slower heart rates would not explain focal neurologic deficits. Hypothyroidism - This can also affect the patient's heart rate and chest pain. This will be evaluated by the primary team. Disposition - If the patient has a nonischemic stress test, it is reasonable for her to be discharged. I will be available on a p.r.n. basis and would be happy to see her should any further cardiac questions arise. Isela Bustillo/BJF /10:20 AM /11:17 AM
--- NOTE | 2016-04-24 19:55 | EKG ---
Date Performed: 04/24/2016 Time Performed: 10:06:51 PTAGE: 71 years EKG: Sinus rhythm MODERATE VOLTAGE CRITERIA FOR LVH, CONSIDER NORMAL VARIANT POSSIBLE ANTERIOR MYOCARDIAL INFARCTION I NFERIOR MYOCARDIAL INFARCTION Since previous tracing, no significant change noted ABNORMAL ECG PREVIOUS TRACING : 04/22/2016 04.31.41 DOCTOR: Francisco Javier Yeboah Interpretating Date/Time 04/24/2016 19:54:26
[2016-04-24] MEDS: PRAVASTATIN SOD 80 MG TAB PO SCH (21:21)
[2016-04-24] MEDS: HYDROCHLOROTHIAZIDE 12.5 MG CAP PO SCH (21:21)
[2016-04-25] VITALS: BP 156/76; PULSE 78; RESP 18; TEMP 97.8; O2SAT 97
[2016-04-25 04:18] VITALS: BP 189/76; PULSE 93; RESP 16; TEMP 97.9; O2SAT 98
[2016-04-25] MEDS: SODIUM CHLOR 0.9% 1000 ML INJ 1,000 ML IV SCH (05:11)
[2016-04-25] MEDS: INSULIN ASPART SUPPLEMENTAL SCALE SQ SCH ×2 (05:25→10:28)
[2016-04-25 08:00] VITALS: BP 137/67; PULSE 75; RESP 20; TEMP 96.4; O2SAT 98
[2016-04-25] MEDS ORDERED: REGADENOSON INJ 0.4 MG/5 ML SYR ONE (08:45)
[2016-04-25] MEDS ORDERED: PNEUMOCOCCAL POLYVALENT INJ 25 MCG/0.5 ML SYR IM ONE (09:00)
[2016-04-25] MEDS: ASPIRIN EC 81 MG TABEC PO SCH (10:21)
[2016-04-25] MEDS: CLOPIDOGREL 75 MG TAB PO SCH (10:21)
[2016-04-25] MEDS: LISINOPRIL 10 MG TAB PO SCH (10:21)
[2016-04-25] MEDS: PANTOPRAZOLE SOD 40 MG DELAYED RELEASE TAB PO SCH (10:21)
[2016-04-25] MEDS: glipiZIDE 5 MG TAB PO SCH (10:21)
[2016-04-25] MEDS: ANASTROZOLE 1 MG TAB PO SCH (10:22)
[2016-04-25] MEDS: CYANOCOBALAMIN 1000 MCG/ML VIAL SQ SCH (10:22)
[2016-04-25] MEDS: SODIUM CHLORIDE 0.9% FLUSH 5 ML FLUSH IVF SCH (10:29)
--- NOTE | 2016-04-25 10:44 | RADRPT ---
EXAM DATE/TIME: 04/24/2016 11:23 [facility] COMPARISON: CHEST SINGLE AP, April 22, 2016, 4:09. INDICATIONS : Substernal chest tightness. Abnormal EKG. DOSE: 32.2 mCi Tc99m Myoview at stress. 31.7 mCi Tc99m Myoview at rest. 0.4 mg Lexiscan STRESS SYMPTOMS: Chest pain and nausea. EJECTION FRACTION: > 70% MEDICAL HISTORY : Hypertension. Diabetes mellitus type 2. Stroke. SURGICAL HISTORY : Cholecystectomy. ENCOUNTER: Initial ACUITY: 1 day PAIN SCALE: 2/10 LOCATION: Substernal chest TECHNIQUE: The patient underwent pharmacologic stress with infusion of prescribed dose. Continuous ECG tracing was monitored during stress. Gated SPECT imaging was performed after stress and conventional SPECT i maging was performed at rest. The examination was performed on a SPECT/CT scanner, both attenuation and non-corrected datasets were reviewed. FINDINGS: DISTRIBUTION: The maximum perfused segment at stress is in the anterolateral wall. PERFUSION STUDY: The pattern of perfusion at stress is within normal limits. No significant fixed or reversible perfus ion defect is identified. GATED STUDY: There is intact wall motion and thickening without hypokinetic or dyskinetic segments. CONCLUSION: 1. Left ventricle perfusion is within normal limits without fixed or reversible perfusion defect iden tified. 2. Normal left ventricle wall motion and ejection fraction. RISK CATEGORY: Low (<1% Annual Mortality Rate) Arnoldo Vázquez MD on April 25, 2016 at 10:40 Board Certified Radiologist. This report was verified electronically.
--- NOTE | 2016-04-25 11:05 | HHI.DS ---
Discharge Summary Admission Date Apr 22, 2016 at 06:14 Discharge Date: Apr 25, 2016 Admitting Diagnosis CVA (1) TIA (transient ischemic attack) ICD Code: G45.9 Diagnosis: Principal (2) Diabetes mellitus ICD Code: E11.9 (3) Hyperlipidemia ICD Code: E78.5 (4) Weakness ICD Code: R53.1 (5) Hypertension ICD Code: I10 Procedures None Brief History - From Admission The patient is a 71-year-old female who presented to the emergency department with complaint of possible stroke. She states that yesterday evening at about 6 PM she awakened from sleep and had difficulty with vision as well as being unable to move. She states that she was able to move her arms and legs, but not enough to move her entire body. She reports chronic left-sided weakness, but feels that it worsened yesterday. She had difficulty with speech as well. She was finally able to move enough to get to the phone and called 911. Her symptoms have improved significantly, but she states that she is still having numbness and tingling on the left side. She also continues to report worsened weakness of the left upper and lower extremity as well. Denies chest pain or dyspnea. Does have right-sided headache this morning, but no headache yesterday when the other symptoms began. CBC/BMP: 04/22/16 0340 04/22/16 0340 Significant Findings Laboratory Tests Test 04/22/16 04/23/16 04/24/16 15:48 06:00 08:59 Erythrocyte Sedimentation Rate 34 mm/hr (0-30) Total Creatine Kinase 489 U/L (26-192) Creatine Kinase MB 14.2 NG/ML (0.5-3.6) Thyroid Stimulating Hormone 0.241 uIU/ML 3rd Gen (0.358-3.740) HDL Cholesterol 63.6 MG/DL (40.0-60.0) Troponin I LESS THAN 0.02 NG/ML (0.02-0.05) Imaging Last Impressions Myocardial Perfusion Scan Nuc Med 04/24/16 0000 Signed Impressions: Service Date/Time: Sunday, April 24, 2016 11:23 - CONCLUSION: 1. Left ventricle perfusion is within normal limits without fixed or reversible perfusion defect identified. 2. Normal left ventricle wall motion and ejection fraction. RISK CATEGORY: Low (<1%% Annual Mortality Rate) Arnoldo Vázquez MD Neck Magnetic Resonance Angiography 04/22/16908 Signed Impressions: Service Date/Time: April 11:42 - CONCLUSION: 1. The examination is within normal limits. Mk Astorga MD Head Magnetic Resonance Angiography 04/22/16908 Signed Impressions: Service Date/Time: April 11:42 - CONCLUSION: 1. Negative examination. Mk Astorga MD Brain MRI 04/22/16908 Signed Impressions: Service Date/Time: April 11:42 - CONCLUSION: 1. Negative examination. Mk Astorga MD Head CT 04/22/16348 Signed Impressions: Service Date/Time: April 04:03 - CONCLUSION: Normal examination for a patient of this age. Georges Copeland MD Chest X-Ray 04/22/16348 Signed Impressions: Service Date/Time: April 04:09 - CONCLUSION: Normal examination for a patient of this age. Georges Copeland MD PE at Discharge General: No acute distress. Heart: Regular rate and rhythm. No murmur. Lungs: Clear to auscultation bilaterally. No wheezes, rales, or rhonchi. Breathing is nonlabored. Abdomen: Soft, nontender, nondistended. Extremities: No lower extremity edema. Psych: Alert and oriented. Pt update on day of discharge The patient states that she feels better today. Still has some pain and numbness from neuropathy, but no new weakness. Denies chest pain or dyspnea. Feels ready to go home. Hospital Course The patient was admitted for workup of neurologic symptoms, TIA versus CVA. Her symptoms improved. Neurology was consulted. Imaging was negative. She was evaluated by PT/OT/ST. She was cleared for discharge by neurology. She developed chest pain. Serial cardiac enzymes were negative. She was evaluated by cardiology. Nuclear stress test was negative. She was felt to be stable for discharge home with home health care for physical therapy. Pt Condition on Discharge: Stable Discharge Disposition: Disch w/ Home Health Serv Discharge Time: <= 30 minutes Discharge Instructions DIET: Follow Instructions for: Heart Healthy Diet, Diabetic Diet Activities you can perform: Regular-No Restrictions Follow up Referrals: Neurology - 1 Week with Abisai Peralta MD PCP Follow-up - 1 Week New Medications: Clopidogrel (Plavix) 75 Mg Tab 75 MG PO DAILY TIA #30 Ref 0 TAB Lisinopril (Lisinopril) 10 Mg Tab 10 MG PO DAILY Blood Pressure Management #30 Ref 0 TAB Continued Medications: Anastrozole (Anastrozole) 1 Mg Tab 1 MG PO DAILY Breast Cancer #30 Ref [address] (Aspirin 81) 81 Mg Tabdr 81 MG PO DAILY Ref 0 TAB Cholecalciferol (Vitamin D3) 5,000 Unit Chew 5000 UNITS PO WEEKLY Nutritional Supplement #1 Ref 0 BOTTLE Glipizide (Glipizide) 5 Mg Tab 2.5 MG PO BIDAC Take 30 minutes before a meal Blood Sugar Management #60 Ref 0 TAB Hydrochlorothiazide (Hydrochlorothiazide) 12.5 Mg Cap 12.5 MG PO HS #30 Ref 0 CAP Simvastatin (Simvastatin) 40 Mg Tab 40 MG PO HS Cholesterol Management #30 Ref 0 TAB Bam Figueroa MD Apr 25, 2016 11:05 Bam Figueroa MD Apr 25, 2016 11:05
[2016-04-25] MEDS ORDERED: LISI10TA3 PO (11:06)
--- NOTE | 2016-04-25 11:36 | PD.CARD.PN ---
Subjective Subjective Remarks PT without complaints Objective Medications Current Medications Medications (Trade) Dose Ordered Sig/Ashia Route Start Time Stop Time Status Last Admin (NS Flush) 2 ml BID IVF 04/22/16 09:00 04/25/16 10:29 (NS Flush) 2 ml UNSCH PRN IVF 04/22/16 06:00 04/25/16 05:11 (D50w (Vial) Inj) 25 ml UNSCH PRN IV PUSH 04/22/16 08:15 (Glucagon Inj) 1 mg UNSCH PRN OTHER 04/22/16 08:15 (Arimidex) 1 mg DAILY PO 04/22/16 09:00 04/25/16 10:22 (Ecotrin Ec) 81 mg DAILY PO 04/22/16 09:00 04/26/16 07:00 04/25/16 10:21 (Pravachol) 80 mg HS PO 04/22/16 21:00 04/24/16 21:21 Clopidogrel Bisulfate 75 mg 75 mg DAILY PO 04/22/16 09:15 04/25/16 10:21 (NS 1000 ml Inj) 1,000 ml @ 75 mls/hr [id number] IV 04/22/16 09:09 04/25/16 05:11 (Vitamin B12 Inj) 1,000 mcg DAILY SQ 04/22/16 21:00 04/25/16 20:59 04/25/16 10:22 (Microzide) 12.5 mg HS PO 04/23/16 21:00 04/24/16 21:21 (Lopressor) 50 mg BID PO 04/23/16 09:45 Hold 04/23/16 12:40 (Glucotrol) 2.5 mg BID@,17 PO 04/23/16 17:00 04/25/16 10:21 (Pill Splitter) 1 ea UNSCH PRN OTHER 04/23/16 10:15 04/23/16 19:26 (Prinivil) 10 mg DAILY PO 04/24/16 09:00 04/25/16 10:21 (Protonix) 40 mg DAILY PO 04/24/16 09:00 04/25/16 10:21 (Tums Chew) 500 mg Q2H PRN CHEW 04/24/16 08:30 Vital Signs / I&O Vital Signs Date Time Temp Pulse Resp B/P Pulse Ox O2 Delivery O2 Flow Rate FiO2 04/25/16 08:00 96.4 75 20 137/67 98 04/25/16 04:18 97.9 93 16 189/76 98 04/25/16 00:00 97.8 78 18 156/76 97 04/24/16 22:54 81 04/24/16 20:34 98.0 85 18 149/67 98 04/24/16 15:25 96.8 82 152/74 97 04/24/16 12:03 97.7 81 22 138/73 100 I/O 04/24/16 04/24/16 04/24/16 04/25/16 04/25/16 04/25/16 07:00 15:00 23:00 07:00 15:00 23:00 Intake Total 840 ml Balance 840 ml Intake Oral 840 ml # Voids 3 Physical Exam GENERAL: Well developed, well nourished. No acute distress. HEENT: Jugular venous pressure is normal. CHEST: Lungs clear to auscultation bilaterally. Unlabored respiratory effort. CARDIAC: Regular rate and rhythm without S3, S4, or murmur. ABDOMEN: Soft, nontender, no hepatosplenomegaly. Bowel sounds present. EXTREMITIES: No clubbing, cyanosis, or edema. Imaging Last 72 hours Impressions Myocardial Perfusion Scan Nuc Med 04/24/16 0000 Signed Impressions: Service Date/Time: Sunday, April 24, 2016 11:23 - CONCLUSION: 1. Left ventricle perfusion is within normal limits without fixed or reversible perfusion defect identified. 2. Normal left ventricle wall motion and ejection fraction. RISK CATEGORY: Low (<1%% Annual Mortality Rate) Arnoldo Vázquez MD Assessment and Plan Assessment and Plan Atypical chest pain - normal nuc stress=> relatively low CV risk for events Bradycardia - low HR, resolved off metoprolol. HTN- lisinopril would be preferred as her HR was a little slow at times on metoprolol Hypothyroidism - primary team. Nelia Reveles MD Apr 25, 2016 11:36
--- NOTE | 2016-04-25 15:20 | HM ---
Date Performed: 04/22/2016 Time Performed: 16:22:00 HOOKUP DATE: 04/22/16 04:22:00 PM Yessy ANALYSIS START TIME: 04/22/2016 4:27:00 PM ANALYSIS END TIME: 04/23/2016 4:31:00 PM PATIENT AGE: 71 PATIENT HEIGHT PATIENT WEIGHT DRUG LIST PATIENT DIAGNOSIS TEST NARRATIVE: The patient's average heart rate was 88 BPM. Heart rates greater than 120 B PM were noted 1% of the time. Heart rates less than 50 BPM were noted < 1% of the time. No pause s exceeding 2.0 seconds were noted. 470 ventricular ectopics, which represented < 1% of the total beat count, were noted. The highest ventricular ectopic frequency occurred from 05:00 PM to 06:00 P M Yessy. During this time 35 VE(s) occurred. Ventricular ectopics were observed as 468 isolated beat( s) and as 1 couplet(s). No runs were noted. 611 supraventricular ectopics, which represented < 1 % of the total beat count, were noted. The highest supraventricular ectopic frequency occurred from 02:00 PM to 03:00 PM Fri. During this time 234 SVE(s) occurred. No episodes of ST depression (de fined as -1.0 mm or more) were noted in channel 1. No episodes of ST depression (defined as -1.0 mm or more) were noted in channel 2. No episodes of ST depression (defined as -1.0 mm or more) were not ed in channel 3. TEST INTERPRETATION: Patient was monitored for a 24hrs period. patient was in normal Sinus rhyth m with an average rate of 88bpm. Patient had sinus bradycardia of 46bpm at 3:45PM. Maximum heart rate of 136bpm and probable sinus tachycardia with 468 PVC'S, and 611 PAC'S and as 1 ventricular couplet (s). Signed by : Francisco Javier Yeboah
== END 2016-04-25 15:17 | disposition home or self-care (01) ==
LOC: NEPE 03:29 → NEDA 06:14 → NEPFCDU 12:25 → N05A 04-25 03:28
PROVIDERS: ADMIT Family Medicine; ATTEND Family Medicine
DX: G45.9 Transient cerebral ischemic attack, unspecified (principal); E11.9 Type 2 diabetes mellitus without complications; I10 Essential (primary) hypertension; E78.5 Hyperlipidemia, unspecified; R94.31 Abnormal electrocardiogram [ECG] [EKG]; R53.1 Weakness; Z85.3 Personal history of malignant neoplasm of breast
CPT/HCPCS: 70450; 70544; 70548; 70553; 71010; 78452; 80053; 80061; 81001; 82550; 82552; 82607; 82948; 83036; 84439; 84443; 84484; 85025; 85610; 85652; 85730; 92523; 92526; 92610; 93005; 93017; 93225; 93226; 93306; 97110; 97116; 97162; 97165; 97535; 99285; A9502; A9577; G0378; G8987; G8988; G8996; G8997; G8998; G9162; G9163; G9164; J2785; J3420; J7030